=== PATIENT | female | born 1980 | race African-American/Black ===

== ENCOUNTER 2018-03-18 10:02 | Emergency (ER) | payer BC ==
[2018-03-18 10:13] VITALS: TEMP 98.3; BMI 31.9
[2018-03-18] MEDS ORDERED: ACETAMINOPHEN 1000 MG/100 ML VIAL (NON FORMULARY) IVPB ONE (10:46)
--- NOTE | 2018-03-18 10:53 | PDOC ---
History of Present Illness - General Chief Complaint: Chest Pain Stated Complaint: CHEST PAIN, PALPITATION Time Seen by Provider: 03/18/18 10:39 History Source: Patient Exam Limitations: No Limitations - History of Present Illness Initial Comments: 03/18/18 10:48 37 YOF with h/o idiopathic intracranial hypertension on acetazolamide and potassium supplements, who p/w 2 weeks of rapid intermittent heart palpitations , and an onset of left upper anterior nagging chest pain yesterday afternoon while she was bending down to pick something up. She notes the pain is up to 7/ 10 maximum and is only present when she is repositioning, not while resting. She denies change in the pain with breathing. She has never had the pain like this in the past, but she does note prior palpitations which have been related to her acetazolamide causing her hypokelamia. Not on OCP or hormone therapy, denies any chance she may be . Past History - Past Medical History Allergies/Adverse Reactions: Allergies Allergy/AdvReac Type Severity Reaction Status Date / Time No Known Allergies Allergy Verified 03/18/18 10:13 Home Medications: Ambulatory Orders Potassium Citrate [Potassium Citrate ER] 10 meq PO DAILY 03/18/18 acetaZOLAMIDE [Diamox -] 250 mg PO TID 03/18/18 COPD: No CHF: No HTN: Yes Other medical history: IDOPATHIC INTRACRAINIAL HTN - Immunization History Immunization Up to Date: No - Suicide/Smoking/Psychosocial Hx Smoking History: Current every day smoker Have you smoked in the past 12 months: No Information on smoking cessation initiated: No Hx Alcohol Use: No Drug/Substance Use Hx: No Review of Systems - Review of Systems Able to Perform ROS?: Yes Comments:: 03/18/18 10:56 GEN: no fever, chills, malaise, generalized weakness, or weight change HEENT: no ear pain, sore throat, vision change, or eye pain CV: chest pain, palpitations, no lightheadedness, syncope, or edema RESP: no cough, wheezing, or SOB GI: no abdominal pain, nausea, vomiting, diarrhea, constipation, or white/black/ bloody stool : no dysuria, hematuria, incontinence, retention, bleeding, or discharge MSK: no neck/back pain, muscle weakness/pain, or joint swelling/pain NEURO: no headache, seizure, vertigo, numbness, tingling, or focal weakness PSYCH: no substance use, no behavior change SKIN: no jaundice, no rash ROS otherwise negative except as noted in HPI *Physical Exam - Vital Signs Last Vital Signs Temp Pulse Resp BP Pulse Ox 98.3 F 96 H 16 123/63 100 03/18/18 10:10 03/18/18 10:10 03/18/18 10:10 03/18/18 10:10 03/18/18 11:00 - Physical Exam Comments: 03/18/18 10:56 GENERAL: a bit nervous but otherwise well-appearing, A/Ox4, no distress, answers questions appropriately HEENT: PERRLA, EOMI, moist mucous membranes NECK/BACK: no midline ttp, no spinal stepoff or deformity, no hematoma, full ROM , neck supple CHEST WALL: no rash, no tenderness to compression, no costal stepoff or deformity CARDIOVASCULAR: regular rate/rhythm, normal S1S2, no MGR, strong peripheral pulses, capillary refill <2 seconds, extremities wwp, no edema LUNGS/RESPIRATORY: no respiratory distress, CTAB GI/ABDOMEN: symmetric [id number], normoactive BS, soft, no ttp, no midline pulsatile masses : no CVA tenderness EXTREMITIES: no muscle atrophy, no acute deformity, no edema SKIN: warm and dry, no pallor, no jaundice, no rash, no bruising, no skin breakdown, no cuts, no lesions NEUROLOGICAL: GCS 15, CN II-XII grossly intact, 5/5 strength proximally and distally, no facial droop Heart Score/ECG Review - History History: Slightly suspicious - Electrocardiogram EKG: Normal - Age Age: </= 45 - Risk Factors Risk Factors Heart Score: Yes Hx Obesity Based on the list above the patient has:: 1-2 risk factors - Troponin Troponin: </= normal limit - Score Heart Score - Total: 1 #1 03/18/18 10:08 NSR, rate 95, normal axis and intervals, no ischemic ST-T changes Moderate Sedation - Procedure Monitoring Vital Signs: Procedure Monitoring Vital Signs Temperature 98.3 F 03/18/18 10:10 Pulse Rate 96 H 03/18/18 10:10 Respiratory Rate 16 03/18/18 10:10 Blood Pressure 123/63 03/18/18 10:10 O2 Sat by Pulse Oximetry (%) 100 03/18/18 11:00 ED Treatment Course - LABORATORY CBC & Chemistry Diagram: 03/18/18 11:10 03/18/18 11:10 - ADDITIONAL ORDERS Additional order review: Laboratory Results 03/18/18 03/18/18 03/18/18 11:10 11:10 11:10 PT with INR INR Sodium 140 Potassium 3.5 Chloride 112 H Carbon Dioxide 22 Anion Gap 7 L BUN 12 Creatinine 0.7 Creat Clearance w eGFR > 60 Random Glucose 77 Calcium 8.4 L Phosphorus 4.0 Magnesium 2.2 Total Bilirubin 0.2 AST 19 ALT 32 Alkaline Phosphatase 116 Creatine Kinase 118 Troponin I < 0.02 Total Protein 7.2 Albumin 3.7 TSH 1.66 Urine Color Ltyellow Urine Appearance Clear Urine pH 7.0 Ur Specific [place] 1.014 Urine Protein Negative Urine Glucose (UA) Negative Urine Ketones Negative Urine Blood Negative Urine Nitrite Negative Urine Bilirubin Negative Urine Urobilinogen Negative Ur Leukocyte Esterase Trace Urine WBC (Auto) <1 Urine RBC (Auto) 1 Ur Epithelial Cells Rare Urine HCG, Qual Negative 03/18/18 11:10 PT with INR 13.40 H INR 1.13 H Sodium Potassium Chloride Carbon Dioxide Anion Gap BUN Creatinine Creat Clearance w eGFR Random Glucose Calcium Phosphorus Magnesium Total Bilirubin AST ALT Alkaline Phosphatase Creatine Kinase Troponin I Total Protein Albumin TSH Urine Color Urine Appearance Urine pH Ur Specific [place] Urine Protein Urine Glucose (UA) Urine Ketones Urine Blood Urine Nitrite Urine Bilirubin Urine Urobilinogen Ur Leukocyte Esterase Urine WBC (Auto) Urine RBC (Auto) Ur Epithelial Cells Urine HCG, Qual 03/18/18 11:10 RBC 4.53 MCV 91.8 MCHC 34.7 RDW 14.1 MPV 8.2 Neutrophils % 66.0 Lymphocytes % 27.9 Monocytes % 4.6 Eosinophils % 1.2 Basophils % 0.3 - RADIOLOGY Radiology Studies Ordered: Category Date Time Status CHEST PA & LAT [RAD] Stat Radiology 03/18/18 10:47 Completed - Medications Given in the ED: ED Medications Discontinued Medications Generic Name Dose Route Start Last Admin Trade Name Freq PRN Reason Stop Dose Admin Acetaminophen 1,000 mg 03/18/18 10:46 03/18/18 11:17 Ofirmev Injection - IVPB 03/18/18 10:47 Not Given ONCE ONE Medical Decision Making - Medical Decision Making 03/18/18 10:58 Adult Pt p/w chest pain. Initial Vital Signs Temp Pulse Resp BP Pulse Ox 98.3 F 96 H 16 123/63 100 03/18/18 10:10 03/18/18 10:10 03/18/18 10:10 03/18/18 10:10 03/18/18 10:10 Exam: As noted in Physical Exam section. DDX IBNLT: most likely musculoskeletal cause of chest pain; less likely but must be worked up for ACS, pericarditis, tamponade, aortic dissection, AAA, PTX , PE, gastritis, PUD, referred abdominal pain, colitis, bowel perforation, PNA/ bronchitis, pleurisy, pleuritis, panic/anxiety, etc W/U ordered: Labs as noted below EKG CXR TX ordered: monitor EKG: Reviewed; results as noted in ECG Review section. CXR: Nothing acute Labs: Reassessment: Patient states much improved, more comfortable now knowing her w/ u results. Repeat exam is benign. Repeat VS: DISCHARGE Repeat cardiac enzymes are negative. No new abnormal rhythms have been observed on the court recording monitor. On last reassessment VS are stable, Pts pain is resolved, and exam is benign. The Pts HEART score indicates they are low risk and do not require admission currently. The Pt is appropriate for discharge with close outpatient follow up. They are comfortable with this plan and will follow up with their primary care provider in 1-3 days. Specific return precautions are discussed and they will come back to the ER if necessary. *DC/Admit/Observation/Transfer Diagnosis at time of Disposition: Palpitations Chest pain Qualifiers: Chest pain type: unspecified Qualified Code(s): R07.9 - Chest pain, unspecified - Discharge Dispostion Disposition: HOME Condition at time of disposition: Stable Decision to Admit order: No - Referrals Referrals: Saman Farrell MD [Staff Physician] - - Patient Instructions Printed Discharge Instructions: DI for Chest Pain Additional Instructions: You were seen in the ER for chest pain and palpitations. We did lab work on your blood and urine, an electrocardiogram, and a chest x-ray, and we did not find any concerning abnormalities. Your symptoms improved with the medications we gave you in the ER. After our assessment, we do not believe you are having a medical emergency at this time, and we believe you are safe to go home. Take over the counter pain medications for your pain, as instructed on the medication label. Please follow up with your primary care provider in 1-3 days. Please also follow up with a line production cook regarding your palpitations. Call their clinic as soon as possible, tell them you were seen in the ER, and tell them you need an appointment. If you have any new or worsening symptoms, especially worsening chest pain, jaw pain, shoulder/arm pain, shortness of breath, sweats, nausea, loss of consciousness, palpitations, or other symptoms, please come back to the ER at any time (24 hours a day). If you are having severe or life threatening symptoms, or symptoms that make it unsafe to drive or have someone drive you, please call 911. - Post Discharge Activity
[2018-03-18] MEDS ORDERED: ACETAMINOPHEN INJECTION 100 ML IVPB ONE (10:55)
[2018-03-18 11:23] LABS: BASO % 0.3 % (0-2.0); EOS % 1.2 % (0-4.5); HEMATOCRIT 41.5 % (32.4-45.2); HEMOGLOBIN 14.4 GM/dL (10.7-15.3); LYMPH % 27.9 % (8-40); MCH 31.8 pg (25.7-33.7); MCHC 34.7 g/dl (32.0-36.0); MEAN CELL VOLUME 91.8 fl (80-96); MEAN PLT VOLUME 8.2 fl (7.5-11.1); MONO % 4.6 % (3.8-10.2); PLATELET COUNT 265 K/MM3 (134-434); RBC 4.53 M/mm3 (3.60-5.2); RDW 14.1 % (11.6-15.6); WHITE BLOOD COUNT 8.9 K/mm3 (4.0-10.0)
[2018-03-18 11:42] LABS: URINE APPEARANCE CLEAR; URINE BILIRUBIN NEGATIVE (<2.0 mg/dL); URINE COLOR LTYELLOW; URINE GLUCOSE (UA) NEGATIVE (NEGATIVE); URINE KETONE NEGATIVE (NEGATIVE); URINE LEUK ESTERASE TRACE (NEGATIVE); URINE NITRITE NEGATIVE (NEGATIVE); URINE PROTEIN NEGATIVE (NEGATIVE); URINE UROBILINOGEN NEGATIVE mg/dL (0.2-1.0)
[2018-03-18 11:47] LABS: ALBUMIN 3.7 g/dl (3.4-5.0); ALK PHOS 116 U/L (45-117); ANION GAP 7 MMOL/L (8-16); BILIRUBIN,TOTAL 0.2 mg/dL (0.2-1); BLOOD UREA NITROGEN 12 mg/dL (7-18); CALCIUM 8.4 mg/dL (8.5-10.1); CHLORIDE 112 mmol/L (98-107); CO2 22 mmol/L (21-32); CREATININE 0.7 mg/dL (0.55-1.3); GLUCOSE,RANDOM 77 mg/dL (74-106); MAGNESIUM 2.2 mg/dL (1.8-2.4); POTASSIUM 3.5 mmol/L (3.5-5.1); SGOT/AST 19 U/L (15-37); SGPT/ALT 32 U/L (13-61); SODIUM 140 mmol/L (136-145); TOT PROT 7.2 g/dl (6.4-8.2)
[2018-03-18 11:57] LABS: INR 1.13 (0.83-1.09); PROTHROMBIN TIME (PATIENT) 13.4 SEC (9.7-13.0)
[2018-03-18 11:58] LABS: EPI CELLS RARE /HPF (FEW)
[2018-03-18 13:26] VITALS: BP 112/90; PULSE 82
--- NOTE | 2018-03-19 10:04 | EKG ---
Test Reason : Blood Pressure : / mmHG Vent. Rate : 095 BPM Atrial Rate : 095 BPM P-R Int : 148 ms QRS Dur : 076 ms QT Int : 362 ms P-R-T Axes : 065 083 055 degrees QTc Int : 454 ms NORMAL SINUS RHYTHM POSSIBLE LEFT ATRIAL ENLARGEMENT BORDERLINE ECG NO PREVIOUS ECGS AVAILABLE Confirmed by Dano Xiong MD ([id number]) on 03/19/2018 10:04:26 AM Referred By: Confirmed By:Dano Xiong MD
== END 2018-03-18 13:28 | disposition home or self-care (01) ==
LOC: JER 10:02
DX: R00.2 Palpitations (principal); R07.9 Chest pain, unspecified; F17.210 Nicotine dependence, cigarettes, uncomplicated; I10 Essential (primary) hypertension
CPT/HCPCS: 36415; 71046-TC-FY; 80053; 81003; 81015; 82550; 83735; 84100; 84443; 84484; 84703; 85025; 85610; 87086; 93005; 93010; 99284-25